=== PATIENT | female | born 1995 | race Caucasian/White ===

== ENCOUNTER 2019-06-25 01:57 | Inpatient (IN) | payer OTHER ==
[2019-06-25] MEDS ORDERED: CEFAZOLIN 2 GM/D5W RTU 2 GM/50 ML RTUPB IV ONE (06:45)
[2019-06-25 07:11] LABS: ABSOLUTE EOSINOPHILS # (AUTO) 0.1 10^3/uL (0.0-0.6); ABSOLUTE LYMPHOCYTES (AUTO) 1.9 10^3/uL (0.5-4.7); ABSOLUTE MONOCYTES (AUTO) 0.8 10^3/uL (0.1-1.4); ABSOLUTE NEUT (AUTO) 5.5 10^3/uL (1.7-8.2); BASOPHILS % (AUTO) 0.3 % (0-2); EOSINOPHILS % (AUTO) 1.7 % (0-6); HEMATOCRIT 37.5 % (36.0-47.0); HEMOGLOBIN 12.9 g/dL (12.0-15.5); LYMPHOCYTES % (AUTO) 23.2 % (13-45); MEAN CORPUSCULAR HGB CONC 34.3 g/dL (32.0-36.0); MEAN CORPUSCULAR VOLUME 84 fl (80-97); MONOCYTES % (AUTO) 9.2 % (3-13); PLATELET COUNT 202 10^3/uL (150-450); RED BLOOD COUNT 4.44 10^6/uL (3.72-5.28); RED CELL DISTRIBUTION WIDTH 14.1 % (11.5-14.0); SEGMENTED NEUTROPHILS % (AUTO) 65.6 % (42-78); TOTAL CELLS COUNTED % (AUTO) 100 %; WHITE BLOOD COUNT 8.4 10^3/uL (4.0-10.5)
[2019-06-25] MEDS: RINGERS SOLUTION,LACTATED 1,000 ML IV PRN ×2 (07:13→19:51)
[2019-06-25 08:09] LABS: APPEARANCE,URINE SLIGHTLY-CLOUDY; BILIRUBIN,URINE NEGATIVE (NEGATIVE); COLOR,URINE YELLOW; GLUCOSE, URINE NEGATIVE (NEGATIVE); KETONES,URINE NEGATIVE (NEGATIVE); LEUKOCYTE ESTERASE,URINE SMALL (NEGATIVE); NITRITE,URINE NEGATIVE (NEGATIVE); PROTEIN,URINE NEGATIVE (NEGATIVE); URINE SPECIFIC GRAVITY 1.014; UROBILINOGEN,URINE NEGATIVE mg/dL (<2.0)
[2019-06-25 08:20] LABS: URINE AMPHETAMINES SCREEN NEGATIVE; URINE BARBITURATES SCREEN NEGATIVE; URINE BENZODIAZEPINES SCREEN NEGATIVE; URINE COCAINE SCREEN NEGATIVE; URINE MARIJUANA (THC) SCREEN NEGATIVE; URINE METHADONE SCREEN NEGATIVE; URINE PHENCYCLIDINE SCREEN NEGATIVE
[2019-06-25] MEDS ORDERED: CEFAZOLIN SODIUM 2 GM in DEXTROSE 5%-WATER 100 ML IV PRN (08:36)
[2019-06-25] MEDS ORDERED: CEFAZOLIN INJ 1 GM VIAL ONE (10:26)
[2019-06-25] MEDS ORDERED: MEPERIDINE HCL/PF INJ 25 MG/1 ML DISP.SYRIN ONE (11:25)
[2019-06-25] MEDS ORDERED: MORPHINE SULFATE 10 MG/ML INJ IV PRN (11:27)
[2019-06-25] MEDS ORDERED: PROMETHAZINE HCL INJ 25 MG/1 ML VIAL IV PRN ×3 (11:27→11:37)
[2019-06-25] MEDS ORDERED: FENTANYL CITRATE INJ/PF 100 MCG/2 ML AMPUL IV PRN ×3 (11:27)
[2019-06-25] MEDS ORDERED: DIPHENHYDRAMINE HCL 50 MG/ML VIAL IV PRN (11:27)
[2019-06-25] MEDS ORDERED: MEPERIDINE HCL/PF INJ 25 MG/1 ML DISP.SYRIN IV PRN (11:27)
[2019-06-25] MEDS ORDERED: ONDANSETRON HCL INJ/PF 4 MG/2 ML SDV IV PRN (11:27)
[2019-06-25] MEDS ORDERED: OXYCODONE-ACETAMINOPHEN 5-325 MG TABLET PO PRN ×3 (11:27→11:37)
[2019-06-25] MEDS ORDERED: SIMETHICONE 80 MG TAB.CHEW PO PRN (11:37)
[2019-06-25] MEDS ORDERED: ACETAMINOPHEN 325 MG TABLET PO PRN (11:37)
[2019-06-25] MEDS ORDERED: HYDROMORPHONE HCL INJ/PF 2 MG/ML AMPULE IV PRN (11:37)
[2019-06-25] MEDS ORDERED: MEASLES,MUMPS&RUBELLA VACC/PF 0.5 ML VIAL SUBCUT PRN (11:37)
[2019-06-25] MEDS ORDERED: OXYTOCIN/NORMAL SALINE 20 UNIT/1,000 ML RTUINJ IV PRN (11:37)
[2019-06-25] MEDS ORDERED: DIPH/PERTUSS(ACELL)/TETANUS VAC/PF 0.5 ML SYR (>=10YO) IM PRN (11:37)
[2019-06-25] MEDS ORDERED: IBUPROFEN 800 MG TABLET PO SCH (12:00)
[2019-06-25] MEDS ORDERED: FENTANYL CITRATE INJ/PF 100 MCG/2 ML AMPUL ONE (12:52)
[2019-06-25] MEDS ORDERED: KETOROLAC TROMETHAMINE INJ/PF 30 MG/1 ML SDV IV SCH (14:00)
[2019-06-25] MEDS: DOCUSATE SODIUM 100 MG CAPSULE PO SCH (18:00)
[2019-06-25] MEDS: KETOROLAC TROMETHAMINE INJ/PF 30 MG/1 ML SDV IV SCH (18:01)
--- NOTE | 2019-06-25 19:46 | Operative Report ---
Operative Report DATE OF SURGERY: 06/25/19 PREOPERATIVE DIAGNOSIS: Intrauterine at 40 + wks EGA. Macrosomia on US. Undesired fertility POSTOPERATIVE DIAGNOSIS: same OPERATION: Primary section and bilateral tubal ligation SURGEON: KENDALL OROZCO ANESTHESIA: Spinal TISSUE REMOVED OR ALTERED: Placenta COMPLICATIONS: None ESTIMATED BLOOD LOSS: 900 INTRAOPERATIVE FINDINGS: Normal appearing fallopian tubes and ovaries. PROCEDURE: IV fluids: per anesthesia record Urinary output: 150 cc Position: To recovery room in stable condition Description of procedure: The patient was taken to the operating room and spinal anesthesia was administered and found to be adequate. She was then placed on the OR table in the supine position with a slight leftward tilt. Patient was prepped and draped in usual sterile fashion. Ancef 3 gms was given IV prior to the procedure for infection prophylaxis. Timeout was taken. A Pfannenstiel skin incision was then made approximately 3 cm above the pubic symphysis and carried down to level the rectus fascia. The rectus fascia was then nicked in the midline with a scalpel and the fascial incision was extended laterally with use of curved Gallagher scissors. The rectus fascia was then grasped with 2 Kocker clamps elevated and the underlying rectus muscle was dissected off both bluntly and sharply. Any bleeding controlled with cautery. The rectus muscles were then split in the midline and the peritoneum was entered. The peritoneal incision was then extended by manually stretching the peritoneum. The bladder blade was positioned. Bladder flap created and bladder blade replaced. The bladder was noted to be out of harm's way. A scalpel was then used in the lower uterine for the hysterotomy, slowly until amniotomy was obtained a large amount of fluid was noted. The uterine incision was then manually stretched. The was noted to be in vertex postion but engaged in the pelvis. The head was delivered with some difficulty and a Kiwi vacuum was used to guide the head out. Kiwi was placed over the sagittal suture and anterior to the posterior fontanelle. Pressure to the green on gauge. NO pop-offs were encountered. After the head, the shoulders delivered with some difficulty d/t baby's size. The rest of the body followed immediately. The cord was cut clamped and the was handed off to the nurse awaiting. The placenta was manually delivered. Using a lap gauze the uterus was cleared of all clots and debris. The uterus was unable to be exteriorized d/t size and an karen retractor was placed. The uterine incision was then closed with 0 Chromic suture in a running locked fashion. A second layer of the same suture was used in a running locked imbricated fashion. The uterine incision was inspected and noted to be hemostatic. The right fallopian tube was identified and traced to the fimbriated end. A filshie clip was placed approximately 2 cm from the uterine cornu. Clip surrounded the tube in its entirety. Blanching noted and hemostasis. The left fallopian tube was identified and traced to the fimbriated end. A filshie clip was placed approximately 2 cm from the uterine cornu. Clip surrounded the tube in its entirety. Blanching noted and hemostasis. Warm saline irrigation was used to clear all clots and debris from the abdomen. The uterine incision was inspected once more and noted to remain hemostatic. Retractor was removed and the peritoneum was closed with 2-0 chromic in a running fashion. The rectus muscles were then reapproximated and the rectus fascia was closed with a #1 PDS in a running fashion. The subcutaneous tissue was then inspected and any bleeding was controlled with Bovie electrocautery. The subcutaneous tissue was then closed with 2-0 Plain Gut suture in a running fashion. The skin was then closed with 3-0 Monocryl in a running subcuticular fashion. The skin incision was then clean dried and Dermabond was applied over the skin incision. All instrument sponge and needle counts were correct x3 for the procedure the patient tolerated the procedure well. She will proceed to recovery room in stable condition
--- NOTE | 2019-06-25 19:48 | PDOC DELIVERY SUMMARY ---
Delivery Summary - Maternal Hx : II Hx # Term Pregnancies: 1 SYLVIA: 06/23/19 Gestational Age: 40+2 Risk Factors: Other - macrosomia on US Ruptured Membranes: AROM Time of Rupture: 10:29 Fluids: Clear - Delivery Presentation: Vertex Heart Rate Monitoring: Done Pre-Operatively Support Person Present: Yes Location: OR : Scheduled Placenta: Within Normal Limits Delivery of Placenta Date: 06/25/19 Delivery of Placenta Time: 10:34 - Medications Type of Anesthesia:: Spinal - Assess and Care Baby 1 Male Delivery of Infant Date: 06/25/19 Delivery of Infant Time: 10:33 at 1 minute: 2 at 5 minutes: 9 Preprinted Number On Band: [id number] Infant Skin to Skin: No To Nursery At: 10:43 Mode of Transport: Bassinet Infant Delivery Weight: 4,460 Delivery Length: 22 in - Delivery Personnel Nursery RN: ZEE KIM MD: KENDALL OROZCO
[2019-06-25] MEDS: OXYCODONE-ACETAMINOPHEN 5-325 MG TABLET PO PRN (19:50)
[2019-06-26] MEDS: OXYCODONE-ACETAMINOPHEN 5-325 MG TABLET PO PRN ×4 (00:19→18:41)
[2019-06-26] MEDS: KETOROLAC TROMETHAMINE INJ/PF 30 MG/1 ML SDV IV SCH (03:26)
[2019-06-26 06:57] LABS: HEMATOCRIT 30.9 % (36.0-47.0); MEAN CORPUSCULAR HGB CONC 33.6 g/dL (32.0-36.0); MEAN CORPUSCULAR VOLUME 86 fl (80-97); PLATELET COUNT 147 10^3/uL (150-450); RED BLOOD COUNT 3.58 10^6/uL (3.72-5.28); RED CELL DISTRIBUTION WIDTH 14.4 % (11.5-14.0); WHITE BLOOD COUNT 9.9 10^3/uL (4.0-10.5)
[2019-06-26 06:58] LABS: HEMOGLOBIN 10.4 g/dL (12.0-15.5)
[2019-06-26] MEDS: IBUPROFEN 800 MG TABLET PO SCH ×3 (08:25→21:17)
[2019-06-26] MEDS: DOCUSATE SODIUM 100 MG CAPSULE PO SCH ×2 (10:17→17:58)
[2019-06-26] MEDS: PRENATAL VITAMIN W DHA CAPSULE PO SCH (10:17)
--- NOTE | 2019-06-26 10:28 | PDOC PROGRESS REPORT ---
Subjective-OB Progress Note for:: 06/26/19 Subjective: Pt doing well, no concerns. Reports light bleeding, reg diet and voiding without difficulty. Physical Exam (OB) Vital Signs: Temp Pulse Resp BP Pulse Ox 97.6 F 84 18 115/57 L 99 06/26/19 04:24 06/26/19 04:24 06/26/19 04:24 06/26/19 04:24 06/26/19 04:24 Intake & Output 06/25/19 06/26/19 06/27/19 06:59 06:59 06:59 Intake Total 3640 Output Total 3350 Balance 290 Weight 124.284 kg - Dressing Removed: No - no dressing Incision: Well Approximated Closure Type: Surgical Glue - Lochia Lochia Amount: Small 10-25 ml Lochia Color: Rubra/Red - Abdomen Description: Soft, Round Hernia Present: No Fundal Description: Firm Fundal Height: u/u - u/2 Objective-Diagnostic Laboratory: 06/26/19 06:34 06/26/19 06:34 WBC 9.9 RBC 3.58 L Hgb 10.4 L D Hct 30.9 L MCV 86 MCH 29.0 MCHC 33.6 RDW 14.4 H Plt Count 147 L Assessment and Plan(PN) - Assessment and Plan (1) Macrosomic baby Is this a current diagnosis for this admission?: Yes (2) Status post primary low transverse section Is this a current diagnosis for this admission?: Yes - Time Spent with Patient Time with patient: Less than 15 minutes Medications reviewed and adjusted accordingly: Yes - Disposition Anticipated Discharge: Home Within: within 24 hours
[2019-06-27] MEDS: IBUPROFEN 800 MG TABLET PO SCH ×2 (03:58→09:32)
[2019-06-27] MEDS: PRENATAL VITAMIN W DHA CAPSULE PO SCH (09:32)
[2019-06-27] MEDS: DOCUSATE SODIUM 100 MG CAPSULE PO SCH (09:32)
--- NOTE | 2019-06-27 11:28 | PDOC DISCHARGE SUMMARY ---
Impression - Admit/DC Date/PCP Admission Date/Primary Care Provider: 06/25/19 06:25 Discharge Date: 06/27/19 - Discharge Diagnosis (1) Suspected macroscopic fetus Is this a current diagnosis for this admission?: Yes (2) Encounter for female sterilization procedure Is this a current diagnosis for this admission?: Yes (3) Status post primary low transverse section Is this a current diagnosis for this admission?: Yes - Additional Information Discharge Diet: Regular Discharge Activity: Balance Activity w/Rest, No Lifting Over 10 Pounds, No Lifting/Push/Pulling, Pelvic Rest, No tub bath Prescriptions: Ibuprofen [Motrin 800 mg Tablet] 800 mg PO Q8HP PRN #90 tablet PRN Reason: Oxycodone HCl/Acetaminophen [Percocet 5-325 mg Tablet] 1 tab PO Q4HP PRN #30 tablet PRN Reason: Home Medications: No122/Iron/Folic Acid [ Multi Tablet] 1 each PO DAILY 06/25/19 Ibuprofen [Motrin 800 mg Tablet] 800 mg PO Q8HP PRN #90 tablet 06/27/19 Oxycodone HCl/Acetaminophen [Percocet 5-325 mg Tablet] 1 tab PO Q4HP PRN #30 tablet 06/27/19 HPI Gestational Age: 40+2 Reason(s) for Admission: Ceasarean Section-Primary Procedures: NST Intrapartum Procedure(s): : Low Cervical, Transverse Results Laboratory Results: WBC 9.9 10^3/uL (4.0-10.5) 06/26/19 06:34 RBC 3.58 10^6/uL (3.72-5.28) L 06/26/19 06:34 Hgb 10.4 g/dL (12.0-15.5) L D 06/26/19 06:34 Hct 30.9 % (36.0-47.0) L 06/26/19 06:34 MCV 86 fl (80-97) 06/26/19 06:34 MCH 29.0 pg (27.0-33.4) 06/26/19 06:34 MCHC 33.6 g/dL (32.0-36.0) 06/26/19 06:34 RDW 14.4 % (11.5-14.0) H 06/26/19 06:34 Plt Count 147 10^3/uL (150-450) L 06/26/19 06:34 Lymph % (Auto) 23.2 % (13-45) 06/25/19 06:57 [place] % (Auto) 9.2 % (3-13) 06/25/19 06:57 Eos % (Auto) 1.7 % (0-6) 06/25/19 06:57 Baso % (Auto) 0.3 % (0-2) 06/25/19 06:57 Absolute Neuts (auto) 5.5 10^3/uL (1.7-8.2) 06/25/19 06:57 Absolute Lymphs (auto) 1.9 10^3/uL (0.5-4.7) 06/25/19 06:57 Absolute Monos (auto) 0.8 10^3/uL (0.1-1.4) 06/25/19 06:57 Absolute Eos (auto) 0.1 10^3/uL (0.0-0.6) 06/25/19 06:57 Absolute Basos (auto) 0.0 10^3/uL (0.0-0.2) 06/25/19 06:57 Seg Neutrophils % 65.6 % (42-78) 06/25/19 06:57 Urine Color YELLOW 06/25/19 07:30 Urine Appearance SLIGHTLY-CLOUDY 06/25/19 07:30 Urine pH 7.0 (5.0-9.0) 06/25/19 07:30 Ur Specific [place] 1.014 06/25/19 07:30 Urine Protein NEGATIVE mg/dL (NEGATIVE) 06/25/19 07:30 Urine Glucose (UA) NEGATIVE mg/dL (NEGATIVE) 06/25/19 07:30 Urine Ketones NEGATIVE mg/dL (NEGATIVE) 06/25/19 07:30 Urine Blood NEGATIVE (NEGATIVE) 06/25/19 07:30 Urine Nitrite NEGATIVE (NEGATIVE) 06/25/19 07:30 Urine Bilirubin NEGATIVE (NEGATIVE) 06/25/19 07:30 Urine Urobilinogen NEGATIVE mg/dL (<2.0) 06/25/19 07:30 Ur Leukocyte Esterase SMALL (NEGATIVE) H 06/25/19 07:30 Urine WBC (Auto) 3 /HPF 06/25/19 07:30 Urine RBC (Auto) 1 /HPF 06/25/19 07:30 Urine Bacteria (Auto) TRACE /HPF 06/25/19 07:30 Squamous Epi Cells Auto 7 /HPF 06/25/19 07:30 Urine Mucus (Auto) RARE /LPF 06/25/19 07:30 Urine Ascorbic Acid NEGATIVE (NEGATIVE) 06/25/19 07:30 Urine Opiates Screen NEGATIVE 06/25/19 07:30 Urine Methadone Screen NEGATIVE 06/25/19 07:30 Ur Barbiturates Screen NEGATIVE 06/25/19 07:30 Ur Phencyclidine Scrn NEGATIVE 06/25/19 07:30 Ur Amphetamines Screen NEGATIVE 06/25/19 07:30 U Benzodiazepines Scrn NEGATIVE 06/25/19 07:30 Urine Cocaine Screen NEGATIVE 06/25/19 07:30 U Marijuana (THC) Screen NEGATIVE 06/25/19 07:30 Blood Type O POSITIVE 06/25/19 06:57 Antibody Screen NEGATIVE 06/25/19 06:57 Plan Plan of Treatment: follow up in one week at [facility] for incision check
[2019-06-27 11:45] VITALS: BP 111/58
== END 2019-06-27 14:25 | disposition home or self-care (01) | DRG 785 ==
LOC: 2N 06:25
PROVIDERS: ADMIT Obstetrics & Gynecology; ATTEND Obstetrics & Gynecology
PROC: 0UL70CZ Occlusion of Bilateral Fallopian Tubes with Extraluminal Device, Open Approach (ICD-10-PCS; 2019-06-25)
PROC: 10D00Z1 Extraction of Products of Conception, Low, Open Approach (ICD-10-PCS; principal; 2019-06-25 09:30)
DX: O48.0 Post-term pregnancy (principal); O33.5XX0 Maternal care for disproportion due to unusually large fetus, not applicable or unspecified; Z37.0 Single live birth; Z3A.40 40 weeks gestation of pregnancy; Z30.2 Encounter for sterilization
CPT/HCPCS: 1961; 36415; 59025; 80307; 81001; 85025; 85027; 86850; 86900; 86901; 94799; J0690; J1170; J1885; J2175; J2590; J3010; J3490; J7060; J7120